=== PATIENT | male | born 1960 | race Caucasian/White ===

== ENCOUNTER 2021-03-16 09:31 | Outpatient (CLI) | payer OTHER ==
[2021-03-16 22:08] LABS: SARS-CoV-2 PCR by NAA Not Detected (NotDetected)
== END 2021-03-16 09:32 | disposition home or self-care (01) ==
LOC: CSHLAB 09:31
PROVIDERS: ATTEND Surgery
DX: Z20.822 Contact with and (suspected) exposure to COVID-19 (principal); C18.7 Malignant neoplasm of sigmoid colon
CPT/HCPCS: U0003; U0005

== ENCOUNTER 2021-03-21 05:59 | Day surgery (SDC) | payer OTHER ==
[2021-03-17 12:28] VITALS: BMI 48.7
[2021-03-21] MEDS ORDERED: Lidocaine 1% MPF 2 ML VIAL ONE (06:18)
[2021-03-21] MEDS ORDERED: Lidocaine 1% PF 5 ML VIAL ONE (07:21)
[2021-03-21] MEDS ORDERED: PROPOFOL 40 ML ONE (07:21)
[2021-03-21] MEDS ORDERED: PROPOFOL 20 ML ONE (08:06)
== END 2021-03-21 09:05 | disposition home or self-care (01) ==
LOC: CSHSDC 05:59
PROVIDERS: ATTEND Surgery
PROC: 0DJD8ZZ Inspection of Lower Intestinal Tract, Via Natural or Artificial Opening Endoscopic (ICD-10-PCS; principal; 2021-03-21)
DX: Z12.11 Encounter for screening for malignant neoplasm of colon (principal); Z85.038 Personal history of other malignant neoplasm of large intestine; K57.30 Diverticulosis of large intestine without perforation or abscess without bleeding; I10 Essential (primary) hypertension; E78.00 Pure hypercholesterolemia, unspecified; M10.9 Gout, unspecified; E11.9 Type 2 diabetes mellitus without complications; Z92.21 Personal history of antineoplastic chemotherapy; E66.01 Morbid (severe) obesity due to excess calories; Z68.43 Body mass index [BMI] 50.0-59.9, adult
CPT/HCPCS: 36416; J2704